=== PATIENT | male | born 1955 | race Caucasian/White ===

== ENCOUNTER 2019-07-29 12:46 | Observation (INO) | payer BC ==
[2019-07-29] MEDS ORDERED: HYDROcodone/Acetaminophen 5/325 mg Tablet PO PRN ×2 (13:46)
[2019-07-29] MEDS ORDERED: Senokot S 8.6-50 MG TAB PO PRN (13:46)
[2019-07-29] MEDS ORDERED: Acetaminophen 325 MG TAB PO PRN (13:46)
[2019-07-29] MEDS ORDERED: Dextrose 50% Abboject 50 ML SYRINGE SLOW IVP PRN (13:52)
[2019-07-29] MEDS ORDERED: Dextrose 5% in Water 1,000 ML IV PRN (13:52)
[2019-07-29] MEDS ORDERED: HumaLOG 300 UNITS/3 ML VIAL SC PRN (13:52)
--- NOTE | 2019-07-29 15:49 | ULT ---
RIGHT LOWER EXTREMITY VENOUS ULTRASOUND WITH DOPPLER: 07/29/19 HISTORY: Pain. Edema. Swelling. TECHNIQUE: Rodriguez scale, color flow, Doppler imaging with spectral waveform analysis is performed of the right low er extremity venous system. FINDINGS: There is compressibility, presence of flow, and augmentation in the common femoral vein, femoral vein , and popliteal vein. There is flow in the greater saphenous vein, profunda femora vein and posterior tibial vein. IMPRESSION: No evidence of thrombus in the right lower extremity deep venous system. POS: TPC
[2019-07-29 15:59] VITALS: BMI 27.6
[2019-07-29 16:45] LABS: Troponin I Less than 0.010 ng/mL (< 0.028)
[2019-07-29] MEDS: Sodium Chloride 0.9% 1,000 ML IV SCH (16:52)
--- NOTE | 2019-07-29 17:38 | CON ---
DATE OF CONSULTATION: 07/29/2019 REASON FOR CONSULTATION: Chest pain. PRIMARY PANEL LAMINATOR: Chandrakant Nicholas MD. HISTORY OF PRESENT ILLNESS: Mr. Myers is a pleasant 63-year-old white gentleman , who comes to the hospital for chest pain. He states he woke up this morning at 3 a.m. He normally wakes up at 4 a.m. to go to work, but at 3 a.m. he was woken up by this chest pain. He went to work. He has been feeling a lot more tired lately and fatigued, because the pain continued. It radiated to the left arm. He decided to call 911 from work and he was brought in for further evaluation. He has also been complaining of right knee pain for the last 3 weeks. Currently, he is pain free. PAST MEDICAL HISTORY: 1. Meniere disease. 2. Hypertension. 3. Atrial flutter, status post ablation in 2007. 4. Paroxysmal atrial fibrillation. 5. Hyperlipidemia. SURGICAL HISTORY: 1. Umbilical hernia repair. 2. Atypical atrial flutter ablation as above. 3. Heart catheterization, last one was in 2015, showed normal coronaries. FAMILY HISTORY: Noncontributory. SOCIAL HISTORY: No alcohol. No drugs. Chews tobacco. OUTPATIENT MEDICATIONS: 1. Klonopin p.r.n. 2. Tums p.r.n. 3. Paroxetine 20 mg at bedtime. 4. Xarelto 20 mg at bedtime. 5. Metformin 1000 mg at bedtime. 6. Rosuvastatin 20 mg a day. 7. Pantoprazole 40 mg at bedtime. 8. Lisinopril 5 mg at bedtime. ALLERGIES: NO KNOWN DRUG ALLERGIES. REVIEW OF SYSTEMS: A 12-point review of systems was done and was all negative unless stated in the history of present illness. PHYSICAL EXAMINATION: VITAL SIGNS: Temperature 97.7, pulse 43, respiratory rate 20, saturating 100% on room air, and blood pressure 142/76. GENERAL: Awake, alert, oriented x3, in no distress. HEENT: Normocephalic and atraumatic. NECK: Supple. LUNGS: Clear. CARDIOVASCULAR: S1 and S2. No S3 or S4. No murmurs. ABDOMEN: Soft. Positive bowel sounds. EXTREMITIES: No edema. SKIN: Warm and dry. LABORATORY WORK: Reviewed. CBC with a white count of 5, hemoglobin 13, hematocrit 38, and platelet count of 135. Coags, INR was 1.5. Chemistries, troponin are negative x3. Creatinine is 1.3, BUN of 15, GFR of 55. Normal sodium and potassium. Normal liver function tests. Lipase was 34. EKG was reviewed, sinus bradycardia in the mid 40s. No ischemic changes. Ultrasound of the right leg shows no evidence of DVT. ASSESSMENT AND PLAN: 1. Chest pain. Atypical. He has had normal heart catheterization in the past. Currently much better and pain free. He already has three negative troponins. We will get an echocardiogram and further risk stratify with a stress test. 2. Bradycardia. Continue to monitor on telemetry. Looking back at his heart rates, he has been anywhere in the 50s to 70s in the past. Currently, he is in the 40s and he feels back to normal. 3. Further recommendations per Dr. Nicholas in the morning his primary business development specialist. Job ID: [id number] MTDD
[2019-07-29 19:38] LABS: Troponin I Less than 0.010 ng/mL (< 0.028)
[2019-07-29] MEDS ORDERED: Rivaroxaban 10 MG TAB PO SCH (21:00)
[2019-07-29] MEDS ORDERED: Calcium Carbonate 500 MG ChewTAB PO SCH (21:00)
[2019-07-29] MEDS ORDERED: Rosuvastatin 20 MG TAB PO SCH (21:00)
[2019-07-29] MEDS ORDERED: clonazePAM 0.5 MG TAB PO SCH (21:00)
[2019-07-29] MEDS ORDERED: PARoxetine 20 MG TAB PO SCH (21:00)
[2019-07-29] MEDS ORDERED: Lisinopril 5 MG TAB PO SCH (21:00)
[2019-07-30 05:31] LABS: #Basophils 0.1 thou/uL (0.0-0.2); #Eosinphils 0.3 thou/uL (0.0-0.7); #Lymphocytes 2.1 thou/uL (1.20-3.40); #Monocytes 0.5 thou/uL (0.11-0.59); #Neutrophils 3.6 thou/uL (1.40-6.50); %Basophils 0.9 % (0.0-1.0); %Eosinophils 5.2 % (0.0-10.0); %Lymphocytes 31.3 % (21.0-51.0); %Monocytes 7.5 % (0.0-10.0); %Neutrophils 55.1 % (42.0-75.0); Hemoglobin 13.3 g/dL (14.0-18.0); Mean Corpuscular HGB CONC 34.6 g/dL (32.0-36.0); Mean Corpuscular Hemoglobin 31.6 pg (27.0-31.0); Mean Corpuscular Volume 91.2 fL (78.0-98.0); Mean Platelet Volume 10.5 fL (7.4-10.4); Platelet Count 122 thou/uL (130-400); RBC Distribution Width 11.3 % (11.5-14.5); Red Blood Cell (RBC) Count 4.23 mill/uL (4.70-6.10); White Blood Cell (WBC) Count 6.6 thou/uL (4.8-10.8)
[2019-07-30 05:45] LABS: ALT (SGPT) 7 U/L (8-55); AST (SGOT) 7 U/L (5-34); Albumin 3.6 g/dL (3.4-4.8); Alkaline Phosphatase 96 U/L (40-150); Anion Gap 9 mmol/L (10-20); BUN (Urea Nitrogen) 13 mg/dL (8.4-25.7); Bilirubin, Total 0.6 mg/dL (0.2-1.2); Calc. Creatinine Clearance 80 mL/min (70-130); Calcium 8.8 mg/dL (7.8-10.44); Carbon Dioxide 26 mmol/L (23-31); Chloride 104 mmol/L (98-107); Estimated GFR-MDRD 61; Globulin 2.3 g/dL (2.4-3.5); Glucose 170 mg/dL (80-115); Potassium 3.9 mmol/L (3.5-5.1); Protein, Total 5.9 g/dL (5.8-8.1); Sodium 135 mmol/L (136-145)
[2019-07-30] MEDS: Sodium Chloride 0.9% 1,000 ML IV SCH (05:46)
[2019-07-30] MEDS ORDERED: Famotidine 20 MG TAB PO SCH (09:00)
[2019-07-30] MEDS ORDERED: Atropine Sulfate 1 mg/1 ml Vial ONE (11:11)
--- NOTE | 2019-07-30 11:51 | NM ---
NM Cardiac Stress W EF WF History: Chest pain Comparison: Nuclear medicine stress test 2009 Findings: Stress and rest performed after the intravenous administration of 30.3 and 9.5 mCi techneti um 99m sestamibi, respectively. Adequate left ventricular uptake of radiotracer. Normal wall motion. No scar or ischemia. Impression: Normal nuclear medicine cardiac stress test and ejection fraction.
[2019-07-30 12:09] VITALS: BP 130/69; TEMP 97.5
--- NOTE | 2019-07-30 13:05 | HP ---
PRIMARY CARE PHYSICIAN: Dr. Lambert. COMPOSITION ROOFER: Dr. Nicholas. CHIEF COMPLAINT: Chest pain. HISTORY OF PRESENT ILLNESS: Mr. Myers is a very pleasant 63-year-old man, who was evaluated for chest pain at [facility]. Reports that he got up extra early today around 3:00 a.m. and noticed that he had this chest pain, pressure, was clammy and did not feel right well. The patient reports the pain had radiated down his left arm. He reports nausea, some vomiting, shortness of breath, and is exacerbated by walking. Reports that he is stressed at work and exhausted, also complaining of right leg knee pain for the last 3 weeks and is getting worse. He reports his calf feels throbby. He was evaluated this morning at [facility], had a CT dissection protocol which was negative. Reports that he saw Dr. 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 He is not sure exactly why he was started taking it. Troponin x2 has been undetectable. EKG over in [facility] showed sinus claudia, beats per minute 54, no ectopics, nonspecific ST changes, T-waves are normal, axis is normal. ED doctor here was going to do a PE protocol for the shortness of breath, chest pain, and right leg pain, but will have to wait as patient had dissection protocol over at [facility] earlier today. Recommend a CTA of the chest tomorrow once the current contrast is cleared his system. Lab work; hemoglobin 13.2, hematocrit 38.4. PT 18. Creatinine 1.31. Glucose this morning was 260. The patient has a historyof hypertension, diabetes, GERD, Menieres disease, has paroxysmal atrial fibrillation and has had 2 ablations. He reports that he has had MIs x2, but on further investigation, he says he has had ablations x2. He did have a heart catheterization in 2016, had a left heart catheterization results; left main was normal, LAD with minimal luminal irregularities at mid LAD, but no stenosis. Circumflex, left dominant, no stenosis. Right coronary artery, no significant stenosis. Left ventricular EF 55% and then was referred at that time to EP for atrial flutter ablation. The patient will be admitted to the observation unit for further management. REVIEW OF SYSTEMS: Chest pain and shortness of breath. Denies cough. Reports nausea. Reports diffuse abdominal pain. Denies constipation or diarrhea. Vomiting. Reports chest pain radiates down left arm. Denies back pain. Reports tightness in his shoulder and neck on the right side. Denies any injury. Reports pain to his right leg behind his knee. All other systems reviewed and are negative unless mentioned in the HPI. PAST MEDICAL HISTORY: Pertinent for diabetes type 2, GERD, Meniere disease, atrial fibrillation, atrial flutter, hypertension. PAST SURGICAL HISTORY: Cardiac ablation x2, appendectomy, and hernia repair. PSYCHIATRIC HISTORY: None. SOCIAL HISTORY: Lives at home with his family. Denies any alcohol or drug use. Currently chews tobacco. FAMILY HISTORY: Reports he has coronary artery disease. ALLERGIES: NONE. CURRENT MEDICATIONS: Per the ER, these still has to be verified. 1. Paxil 10 mg p.o. once a day. 2. Clonazepam 0.5 mg p.o. once a day. 3. Metformin 500 mg b.i.d. 4. Protonix 40 mg once a day. 5. Xarelto 20 mg once a day. 6. Plavix 75 mg daily (?) PHYSICAL EXAMINATION: VITAL SIGNS: Blood pressure 131/86, pulse is 48, respirations are 14, temperature is 97.6, PO2 sats are 96% on room air. CONSTITUTIONAL: The patient is nontoxic appearing, he does look uncomfortable. He is alert and oriented to person, place, and time. HEENT: Head is atraumatic and normocephalic. Eyes, pupils are equal, round, and reactive to light. Extraocular muscles are intact. There is no nystagmus. ENT ; mouth exam is normal. Mucous membranes are moist. NECK: Normal range of motion. No tenderness. RESPIRATORY/CHEST. Breath sounds are clear. CARDIOVASCULAR: Heart rhythm is bradycardic and regular. No abnormal heart sounds. ABDOMEN: Mildly tender diffusely. There is no guarding, no rebound. Bowel sounds are heard. BACK: Normal inspection, normal range of motion. No tenderness. EXTREMITIES: Upper extremity; normal inspection, normal range of motion. Motor strength and sensation intact. Radial pulses are normal. Lower extremity; normal range of motion. Motor strength is normal. Pedal pulse is normal. There is no edema noted. There is some mild calf tenderness to the right lower extremity, mild, but no swelling. No erythema. No cords. NEUROLOGIC: The patient is oriented to person, place, and time. Speech is normal. SKIN: Warm and dry, normal in color. ASSESSMENT AND PLAN: 1. Chest pain with a clean cardiac cath in 2016, is on Xarelto. We will consult Dr. Nicholas for further recommendations. 2. Bradycardia. We will also consult Dr. Nicholas on this as well. 3. History of atrial flutter, atrial fibrillation. 4. Gastroesophageal reflux disease. We will continue home medications. 5. Deep venous thrombosis prophylaxis. We will continue the Xarelto. 6. GI. The patient is already on Protonix. We will continue. 7. Case discussed with Dr. Gan, who agrees with plan. 8. Hospital course dependent on clinical findings. Job ID: [id number] [facility]
--- NOTE | 2019-07-30 14:07 | PRG ---
DATE OF SERVICE: 07/30/2019 SUBJECTIVE: Mr. Myers is doing much better today. Talking to him. His main symptoms are weakness and fatigue. In the shelter, he did have some chest pain, but has predominantly weakness and fatigue and just felt "horrible." His heart rate was in the low 40s when he got here. Cardiac enzymes were all negative. Today, he feels better. He has been hydrated overnight. 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 He said to go outside to cool off. OBJECTIVE: VITAL SIGNS: His blood pressure today is 130/69, pulse 52, and at times the heart rates are in the low 40s. He has sinus arrhythmia intermittently and some bradycardic rate. LUNGS: Clear. CARDIAC: Bradycardic earlier, now has normal rhythm. Normal S1 and normal S2. ABDOMEN: Soft and nontender. EXTREMITIES: No edema. ASSESSMENT: 1. Symptomatic bradycardia. 2. Normal stress test. 3. Negative cardiac enzymes. 4. Heat exposure. PLAN: I think the patient needs pacemaker insertion. The risks including bleeding, infection, air around the lung discussed. He understands and wished to proceed. He is on Xarelto. We will discharge him home. I told him to avoid the heat and we will call him in to schedule outpatient pacemaker insertion with Dr. Wadsworth. The patient does have symptomatic bradycardia, low 40s, with fatigue. Job ID: [id number]
[2019-07-30] MEDS ORDERED: Regadenoson 0.4 MG/5 ML SYRINGE ONE (16:54)
--- NOTE | 2019-07-30 19:20 | DIS ---
DATE OF ADMISSION: 07/29/2019 DATE OF DISCHARGE: 07/30/2019 DISCHARGE DISPOSITION: Home. FOLLOWUP: 1. Follow up with primary care physician, Dr. Nadeen Lambert, in 1 week. 2. Follow up with Cardiology, Dr. Nicholas in 1 week. ALLERGIES: NO KNOWN DRUG ALLERGIES. THE PATIENT WAS SEEN AND EXAMINED ON THE DAY OF DISCHARGE. DENIES ANY NEW COMPLAINTS. NO CHEST PAIN, SHORTNESS OF BREATH, OR PALPITATIONS REPORTED. DISCHARGE MEDICATIONS: Same as admission medication. BRIEF HOSPITAL COURSE: The patient is a 63-year-old male with hypertension, hyperlipidemia, and diabetes mellitus type 2, who presented to the hospital with chest discomfort. Please refer to the history and physical for further details. The patient was admitted to the hospital with a diagnosis of chest discomfort, rule out acute coronary syndrome. His serial troponins remained negative. He was monitored on telemetry. He was also seen by Cardiology, Dr. Nicholas. He underwent a Cardiolite stress test that was negative for reversible ischemia. He will follow up with Cardiology as outpatient for evaluation for possible pacemaker due to persistent bradycardia with heart rate in 40s. He has been cleared by Cardiology for discharge. Fall precaution with 24-hour supervision will be helpful. FINAL DIAGNOSES: 1. Chest discomfort, acute coronary syndrome ruled out. 2. Asymptomatic bradycardia. 3. Hypertension. 4. Diabetes mellitus type 2. 5. Gastroesophageal reflux disease. 6. Meniere disease. 7. History of atrial flutter, status post ablation. 8. Paroxysmal atrial fibrillation, on anticoagulation. 9. Anxiety. 10. Chronic kidney disease, stage 2. 11. Mild hyponatremia. 12. Normochromic normocytic anemia. PLAN: Plan of care was discussed with the patient in detail. He stated understanding. Job ID: [id number]
== END 2019-07-30 15:16 | disposition home or self-care (01) ==
LOC: ERS 12:46 → 2SW 15:49
PROVIDERS: ADMIT Internal Medicine; ATTEND Internal Medicine
DX: R07.89 Other chest pain (principal); R00.1 Bradycardia, unspecified; I12.9 Hypertensive chronic kidney disease with stage 1 through stage 4 chronic kidney disease, or unspecified chronic kidney disease; E11.22 Type 2 diabetes mellitus with diabetic chronic kidney disease; N18.2 Chronic kidney disease, stage 2 (mild); I48.0 Paroxysmal atrial fibrillation; E78.5 Hyperlipidemia, unspecified; K21.9 Gastro-esophageal reflux disease without esophagitis; H81.09 Meniere's disease, unspecified ear; D64.9 Anemia, unspecified; E87.1 Hypo-osmolality and hyponatremia; F17.220 Nicotine dependence, chewing tobacco, uncomplicated; Z79.01 Long term (current) use of anticoagulants; Z79.84 Long term (current) use of oral hypoglycemic drugs; Z79.899 Other long term (current) drug therapy
CPT/HCPCS: 36415; 36416; 78452; 80053; 85025; 93005; 93017; 96360; 96361; A9500; G0378; J0461; J2785